=== PATIENT | female | born 1970 | race Caucasian/White ===

== ENCOUNTER → 2016-12-21 | Outpatient (CLI) | payer SELFPAY ==
--- NOTE | 2016-12-21 16:31 | VAS ---
HISTORY: Carotid bruit Study: Carotid sonogram Comparison: None Technique: Multiple velasco scale and color flow Doppler images of the right and left carotid arterial system were obtained. The vertebral arterial system was evaluated as well. Findings: Normal color flow Doppler is seen throughout the right and left carotid arterial system. No hemodyn amically significant stenosis is seen based on velocity criteria. The right and left vertebral kay brittaney demonstrate antegrade flow. IMPRESSION: 1. No hemodynamically significant stenosis. Reported By:
== END ==
LOC: RAD 13:47
PROVIDERS: ATTEND Physician Assistant
DX: R09.89 Other specified symptoms and signs involving the circulatory and respiratory systems (principal); R07.89 Other chest pain
CPT/HCPCS: 93306; 93880

== ENCOUNTER → 2017-01-16 | Outpatient (CLI) | payer SELFPAY ==
[~2017-01-16] MED LIST: LEXISCAN IV ONE
== END ==
LOC: RAD 08:46
PROVIDERS: ATTEND Physician Assistant
DX: R07.89 Other chest pain (principal); R06.02 Shortness of breath
CPT/HCPCS: 78452; 93017; A4222; A9502; J2785